=== PATIENT | male | born 1940 | race Caucasian/White ===

== ENCOUNTER 2022-06-03 15:48 | Emergency (ER) | payer MEDICARE, BC, OTHER ==
[~2022-06-03] VITALS: Ht 172.7 cm; Wt 81.6 kg
[2022-06-03] MEDS ORDERED: diphenhydrAMINE 50 MG/1 ML VIAL IV ONE (16:00)
[2022-06-03] MEDS ORDERED: methylPREDNISolone SOD SUCC 125 MG/2 ML VIAL IV ONE (16:00)
--- NOTE | 2022-06-03 16:00 | NUR ---
Pt was seen by the ERMD and triaged but is waiting in the ER hallway in the EMS gurney because there are no ER beds open.
--- NOTE | 2022-06-03 16:12 | NUR ---
Pt to room 5A via EMS gurney.
[2022-06-03 16:19] LABS: HEMATOCRIT 39.7 % (36.7-47.1); MEAN CORPUSCULAR HEMOGLOBIN 34.2 uug (23.8-33.4); MEAN CORPUSCULAR VOLUME 103.1 fL (73.0-96.2); PLATELET COUNT (AUTO) 264 K/uL (152-348)
[2022-06-03] MEDS ORDERED: methylPREDNISolone SOD SUCC 125 MG/2 ML VIAL ONE (16:19)
[2022-06-03] MEDS ORDERED: diphenhydrAMINE 50 MG/1 ML VIAL ONE (16:19)
[2022-06-03 16:32] LABS: CREATININE 1.2 mg/dL (0.6-1.3); POTASSIUM 3.6 mmol/L (3.5-5.1)
[2022-06-03 16:43] LABS: BILIRUBIN,TOTAL 1.1 mg/dL (0.2-1.0)
[2022-06-03] MEDS ORDERED: SWABABLE VALVE TRANSFER SET EA MC ONE (17:30)
[2022-06-03] MEDS ORDERED: IV NORMAL SALINE 250 ML IV ONE (17:30)
[2022-06-03] MEDS ORDERED: IOHEXOL 300MG/ML 100 ML INFUS..BTL ONE (17:30)
--- NOTE | 2022-06-03 19:29 | NUR ---
Endorsed to Dorothy CONTRERAS.
--- NOTE | 2022-06-03 20:46 | NUR ---
Called [facility] for reconstructive surgeon, per charge nurse they do not have reconstructive surgeon available.
--- NOTE | 2022-06-03 21:29 | NUR ---
Called [facility] for facial reconstructive surgeon. Ordered to transfer pt. information, to Lisa for [place] bed.
--- NOTE | 2022-06-03 21:43 | NUR ---
faxed sent to Lisa from [facility] transfer center [phone] and said will call back for bed availability
--- NOTE | 2022-06-03 21:54 | NUR ---
Lisa from [facility] # is [phone]
--- NOTE | 2022-06-03 22:10 | NUR ---
Lisa called back, no bed available
--- NOTE | 2022-06-03 22:15 | NUR ---
Calling [facility] Transfer Center Aleksandr
--- NOTE | 2022-06-03 22:21 | NUR ---
[facility] are in full capacity, no bed available at this time
--- NOTE | 2022-06-03 22:29 | NUR ---
Called [facility] and talked to Jocelyn, will call back if there is bed available and stated as of now they are in full capacity fax# [phone]
--- NOTE | 2022-06-03 23:15 | NUR ---
Called [facility], no answer
[2022-06-04] MEDS ORDERED: CLINDAMYCIN 600 MG PIGGYBACK**ER OMNI IV ONE ×3 (00:11→14:26)
[2022-06-04] MEDS ORDERED: CLINDAMYCIN PHOSPHATE IV 600 MG in IV DEXTROSE 5% 100 ML IV ONE ×2 (00:15→14:15)
--- NOTE | 2022-06-04 00:18 | NUR ---
Pt. in bed, eyes closed, med given as ordered
--- NOTE | 2022-06-04 08:00 | NUR ---
Pt is sleeping with NAD noted at this time. at bedside.
[2022-06-04] MEDS ORDERED: CLINDAMYCIN PHOSPHATE IV 600 MG in IV DEXTROSE 5% 100 ML IV STA (08:07)
--- NOTE | 2022-06-04 09:00 | NUR ---
Called [facility] ER for possible transfer for higher level of care, stated no ENT.
--- NOTE | 2022-06-04 09:15 | NUR ---
Called [facility] for [facility] transfer, spoke with Johnnie, no beds available.
--- NOTE | 2022-06-04 09:20 | NUR ---
Pt ate small amout of scrambbled eggs and drank some coffee, (okay with ER physician). Pt resting in gurney and watching TV at this time, pending transfer for higher level of care.
--- NOTE | 2022-06-04 11:00 | NUR ---
Pt watching television, NAD noted at this time.
--- NOTE | 2022-06-04 13:15 | NUR ---
Called Kalyan Borrego MD (morale officer) [phone] per request. Office stated they will give him a message to call back.
--- NOTE | 2022-06-04 13:40 | NUR ---
Spoke with pt's facility [facility] who stated to call Dr.Roya Martinez [phone].
--- NOTE | 2022-06-04 13:44 | NUR ---
spoke with Dr.Roya Martinez via telephone. The office also spoke with with pt's and discussed plan of care.
[2022-06-04] MEDS ORDERED: AMOX-430 PO (13:51)
--- NOTE | 2022-06-04 14:00 | NUR ---
Pt to be d/c back to his assisted living facility ([facility]) and have follow up with Dr.Roya Martinez. Called [facility] for transport, ETA 1990.
--- NOTE | 2022-06-04 16:47 | NUR ---
IV removed. Catheter intact and site benign. Pressure and 4x4 gauze applied to site. No bleeding noted.
--- NOTE | 2022-06-04 16:51 | NUR ---
Pt trans back to [facility] via [facility]. ACI given to EMT.
== END 2022-06-04 16:54 ==
LOC: ER 15:48
DX: R22.9 Localized swelling, mass and lump, unspecified (principal); M27.2 Inflammatory conditions of jaws; G30.9 Alzheimer's disease, unspecified; F02.C0 Dementia in other diseases classified elsewhere, severe, without behavioral disturbance, psychotic disturbance, mood disturbance, and anxiety; N40.0 Benign prostatic hyperplasia without lower urinary tract symptoms; I48.91 Unspecified atrial fibrillation; F32.9 Major depressive disorder, single episode, unspecified; Z88.2 Allergy status to sulfonamides; Z88.1 Allergy status to other antibiotic agents; Z88.8 Allergy status to other drugs, medicaments and biological substances
CPT/HCPCS: 99285; 70487; 96375; 80053; 85025; 36415; 96365; 96366; 96376; J1200; J2930; Q9967; J3490 ×3; A4663